=== PATIENT | female | born 1985 | race American Indian/Alaskan Native ===

== ENCOUNTER 2018-07-03 23:53 | Emergency (ER) | payer OTHER ==
[2018-07-04 00:08] VITALS: BMI 34.9
[2018-07-04 00:18] VITALS: BP 139/92; PULSE 109; RESP 16; TEMP 98.4; O2SAT 98
--- NOTE | 2018-07-04 01:02 | C.PDOC ---
History Of Present Illness Patient brought in by police and being found outside drinking and smoking PCP. Denies SI or HI. Time Seen by Provider: 07/04/18 01:01 Chief Complaint (Nursing): Substance Abuse History Per: Patient History/Exam Limitations: no limitations Onset/Duration Of Symptoms: Hrs Current Symptoms Are (Timing): Still Present Suicide/Self Injury Attempted (Context): None Modifying Factor(s): Alcohol, Other (PCP) Associated Symptoms: denies: Suicidal Thoughts, Other (Homicidal ideation) Involuntary Hold By: None Recent travel outside of the [place]: No Past Medical History Reviewed: Historical Data, Nursing Documentation, Vital Signs Vital Signs: Last Vital Signs Temp 98.4 F 07/04/18 00:15 Pulse 109 H 07/04/18 00:15 Resp 16 07/04/18 00:15 BP 139/92 H 07/04/18 00:15 Pulse Ox 98 07/04/18 00:15 Family History: States: No Known Family Hx - Social History Hx Alcohol Use: Yes Hx Substance Use: Yes Review Of Systems Constitutional: Negative for: Fever, Chills Cardiovascular: Negative for: Chest Pain, Palpitations Respiratory: Negative for: Cough, Shortness of Breath Gastrointestinal: Negative for: Nausea, Vomiting Neurological: Negative for: Weakness, Numbness Physical Exam - Physical Exam Appears: Non-toxic, Other (Calm, cooperative, no sign of injury) Skin: Warm, Dry Head: Normacephalic Oral Mucosa: Moist Chest: Symmetrical, No Tenderness Cardiovascular: Rhythm Regular Respiratory: No Rales, No Rhonchi, No Wheezing Gastrointestinal/Abdominal: Soft, No Tenderness Neurological/Psych: Oriented x3 ED Course And Treatment O2 Sat by Pulse Oximetry: 98 Disposition Counseled Patient/Family Regarding: Studies Performed, Diagnosis, Need For Followup - Disposition Referrals: [facility] [Outside] Disposition: HOME/ ROUTINE Disposition Time: 01:02 Condition: FAIR Instructions: Polysubstance Abuse (DC) Forms: [facility] (H[place]er) - Clinical Impression Clinical Impression: Substance abuse - Scribe Statement The provider has reviewed the documentation as recorded by the Scribe Matt Baldwin All medical record entries made by the Scribe were at my direction and personally dictated by me. I have reviewed the chart and agree that the record accurately reflects my personal performance of the history, physical exam, medical decision making, and the department course for this patient. I have also personally directed, reviewed, and agree with the discharge instructions and disposition.
== END 2018-07-04 01:21 | disposition home or self-care (01) ==
LOC: C.ER 23:53
DX: F19.10 Other psychoactive substance abuse, uncomplicated (principal)